=== PATIENT | male | born 1960 | race Caucasian/White ===

== ENCOUNTER 2018-01-27 12:30 | Emergency (ER) | payer BC ==
[~2018-01-27] VITALS: Ht 165.1 cm; Wt 71.2 kg
[~2018-01-27 12:30] MED LIST: ADVIL PM PO
[2018-01-27 12:35] VITALS: BP 134/78
[2018-01-27] MEDS ORDERED: KEFLEX500 M1 PO (13:58)
== END 2018-01-27 14:10 | disposition home or self-care (01) ==
LOC: ER 12:30
DX: S61.011A Laceration without foreign body of right thumb without damage to nail, initial encounter (principal); W26.8XXA Contact with other sharp object(s), not elsewhere classified, initial encounter; Y93.89 Activity, other specified; Y92.89 Other specified places as the place of occurrence of the external cause; Y99.8 Other external cause status

== ENCOUNTER 2019-10-22 12:15 | Emergency (ER) | payer BC ==
[~2019-10-22] VITALS: Ht 167.6 cm; Wt 68.0 kg
[~2019-10-22 12:15] MED LIST changes: +KEFLEX500 M1 PO
[2019-10-22 13:27] LABS: BASOPHILS 0.7 % (0.0-2.0); HEMOGLOBIN 14.7 gm/dL (14.0-18.0)
[2019-10-22 13:29] LABS: ABSOLUTE NEUTROPHILS 4.2 thou/uL (1.4-8.2); EOSINOPHILS 0.4 % (0.0-3.0); HEMATOCRIT 43.4 % (42.0-52.0); LYMPHOCYTES 15.7 % (24.0-44.0); MCH 31.5 pg (26.0-34.0); MCHC 33.9 g/dL (28.0-37.0); MCV 92.9 fL (80.0-100.0); MONOCYTES 7.5 % (1.0-8.0); PLATELET COUNT 196 thou/uL (150-400); POLYS 75.7 % (36.0-66.0); RBC 4.68 mil/uL (4.50-6.00); RDW 13.8 % (10.5-14.5); WBC 5.5 thou/uL (4.0-11.0)
[2019-10-22 13:36] LABS: ANION GAP 11 mmol/L (7-16); BUN 20 mg/dL (7-18); CALCIUM 9.6 mg/dL (8.5-10.1); CHLORIDE 100 mmol/L (98-107); CO2 27 mmol/L (21-32); CREATININE 1.1 mg/dL (0.7-1.3); GLUCOSE 103 mg/dL (74-106); POTASSIUM 4.6 mmol/L (3.5-5.1); SODIUM 138 mmol/L (136-145)
[2019-10-22 13:46] LABS: ALBUMIN 4.3 g/dL (3.4-5.0); SGOT 29 U/L (15-37); SGPT 34 U/L (30-65); TOTAL BILIRUBIN 0.7 mg/dL (<0.1-1.0); TROPONIN-I <0.06 ng/mL (<0.06)
--- NOTE | 2019-10-22 14:20 | EKG ---
[facility] [place] [address] ELECTROCARDIOGRAM REPORT Name: CHRISTINA DELANEY Room #: PRE M.R.#: [id number] Admission: Attend Phys: Discharge: Date of : 58 Report #: [id number] THIS REPORT FOR: cc: Donald Moses MD,Donald Benitez,Osman Calvin MD ~ THIS REPORT FOR: //name// [facility] ED Test Date: 2019-10-22 Test Time: 12:38:07 Pat Name: CHRISTINA DELANEY Department: Room: Gender: M Tester Sound: JEWELS : 1960 Requested By: Malik Samson Order Number: [id number] MD: Osman Benitez Measurements Intervals [place] Rate: 72 P: 43 WV: 164 QRS: 41 QRSD: 84 T: 50 QT: 364 QTc: 399 Interpretive Statements Sinus rhythm Probable left atrial enlargement Compared to ECG 09/10/2013 08:09:12 No significant changes Electronically Signed On 10-22-2019 14:18:55 CDT by Osman Benitez [email or web address] <ELECTRONICALLY SIGNED> By: Osman Benitez MD 10/22/19 1418 1238 1238 Osman Benitez MD /EMRE
[2019-10-22] MEDS ORDERED: VENTOLIN HFA 1818 GM INH (15:43)
[2019-10-22 15:55] VITALS: BP 126/75
== END 2019-10-22 15:56 | disposition home or self-care (01) ==
LOC: ER 12:15
PROVIDERS: Physician Assistant
DX: R06.02 Shortness of breath (principal); I10 Essential (primary) hypertension; E78.5 Hyperlipidemia, unspecified

== ENCOUNTER → 2019-10-26 | Outpatient (CLI) | payer OTHER ==
[~2019-10-26] MED LIST changes: +VENTOLIN HFA 1818 GM INH
== END ==
LOC: CAT 11:18
DX: Z13.6 Encounter for screening for cardiovascular disorders (principal); E78.00 Pure hypercholesterolemia, unspecified; I25.10 Atherosclerotic heart disease of native coronary artery without angina pectoris

== ENCOUNTER → 2019-10-29 | Outpatient (CLI) | payer BC | LOC: SJCVCIMAG 08:33 | DX: Z01.818 Encounter for other preprocedural examination (principal); R06.00 Dyspnea, unspecified ==

== ENCOUNTER 2021-05-29 06:50 | Emergency (ER) | payer BC ==
[~2021-05-29] VITALS: Ht 165.1 cm; Wt 70.3 kg
[2021-05-29] MEDS ORDERED: ROSUVASTATIN CA20 MG PO (07:08)
[2021-05-29] MEDS ORDERED: ZETIA10 MG PO (07:08)
[2021-05-29] MEDS ORDERED: BUSPIRONE HCL5 MG PO (07:08)
[2021-05-29] MEDS ORDERED: FLOMAX0.4 MG PO (07:09)
[2021-05-29] MEDS ORDERED: BENAZEPRIL 10 M10 MG PO (07:09)
[2021-05-29] MEDS ORDERED: LUMIGAN2.5 M1 OP (07:09)
[2021-05-29 07:41] LABS: URINE BILIRUBIN NEGATIVE (Negative); URINE BLOOD 2+ (Negative); URINE CLARITY CLEAR; URINE COLOR YELLOW; URINE GLUCOSE-RANDOM* NEGATIVE (Negative); URINE KETONES NEGATIVE (Negative); URINE NITRITE-REFLEX NEGATIVE (Negative); URINE PROTEIN (DIPSTICK) NEGATIVE (Negative); URINE SPECIFIC GRAVITY 1.015 (1.005-1.035); URINE UROBILINOGEN 0.2 E.U./dl (0.2-1.0)
[2021-05-29 07:44] LABS: URINE LEUKOCYTES-REFLEX 3+ (Negative)
[2021-05-29 08:09] LABS: ABSOLUTE NEUTROPHILS 7.4 thou/uL (1.4-8.2); BASOPHILS 0.2 % (0.0-2.0); EOSINOPHILS 0.2 % (0.0-3.0); HEMATOCRIT 39.3 % (42.0-52.0); HEMOGLOBIN 13.1 gm/dL (14.0-18.0); LYMPHOCYTES 7.6 % (24.0-44.0); MCH 31.2 pg (26.0-34.0); MCHC 33.4 g/dL (28.0-37.0); MCV 93.3 fL (80.0-100.0); MONOCYTES 10.5 % (1.0-8.0); PLATELET COUNT 216 thou/uL (150-400); POLYS 81.5 % (36.0-66.0); RBC 4.21 mil/uL (4.50-6.00); RDW 13.7 % (10.5-14.5); WBC 9.1 thou/uL (4.0-11.0)
[2021-05-29 08:35] LABS: CALCIUM 9.1 mg/dL (8.5-10.1); CREATININE 1.1 mg/dL (0.7-1.3)
[2021-05-29 08:38] LABS: POTASSIUM 4.6 mmol/L (3.5-5.1)
[2021-05-29 08:52] LABS: CASTS None Seen /LPF (None Seen); CRYSTALS None Seen /LPF (None Seen); SQUAMOUS None Seen /LPF (0-3); URINE RBC 1-2 Rare /HPF (NONE SEEN)
[2021-05-29 10:02] VITALS: BP 145/76
== END 2021-05-29 10:02 | disposition home or self-care (01) ==
LOC: ER 06:50
PROVIDERS: Emergency Medicine
DX: R33.9 Retention of urine, unspecified (principal); E78.00 Pure hypercholesterolemia, unspecified; Z85.46 Personal history of malignant neoplasm of prostate; Z79.51 Long term (current) use of inhaled steroids; Z79.899 Other long term (current) drug therapy

== ENCOUNTER 2021-06-02 13:40 | Emergency (ER) | payer BC ==
[~2021-06-02] VITALS: Ht 165.1 cm; Wt 70.3 kg
[~2021-06-02 13:40] MED LIST changes: +BENAZEPRIL 10 M10 MG PO; +BUSPIRONE HCL5 MG PO; +FLOMAX0.4 MG PO; +LUMIGAN2.5 M1 OP; +ROSUVASTATIN CA20 MG PO; +ZETIA10 MG PO
[2021-06-02 13:50] VITALS: BP 144/74
[2021-06-02 15:05] LABS: URINE BILIRUBIN NEGATIVE (Negative); URINE BLOOD TRACE (Negative); URINE CLARITY CLEAR; URINE COLOR YELLOW; URINE GLUCOSE-RANDOM* NEGATIVE (Negative); URINE KETONES NEGATIVE (Negative); URINE LEUKOCYTES-REFLEX NEGATIVE (Negative); URINE NITRITE-REFLEX NEGATIVE (Negative); URINE PROTEIN (DIPSTICK) NEGATIVE (Negative); URINE SPECIFIC GRAVITY 1.015 (1.005-1.035); URINE UROBILINOGEN 0.2 E.U./dl (0.2-1.0)
== END 2021-06-02 16:13 | disposition home or self-care (01) ==
LOC: ER 13:40
PROVIDERS: Emergency Medicine
DX: T83.098A Other mechanical complication of other urinary catheter, initial encounter (principal); R33.9 Retention of urine, unspecified; E78.00 Pure hypercholesterolemia, unspecified; Z85.46 Personal history of malignant neoplasm of prostate; Z79.51 Long term (current) use of inhaled steroids; Z79.891 Long term (current) use of opiate analgesic; Z79.899 Other long term (current) drug therapy; Y84.8 Other medical procedures as the cause of abnormal reaction of the patient, or of later complication, without mention of misadventure at the time of the procedure; Y92.89 Other specified places as the place of occurrence of the external cause